=== PATIENT | female | born 1990 | race Caucasian/White ===

== ENCOUNTER 2018-06-08 23:49 | Emergency (ER) | payer OTHER ==
[~2018-06-08] VITALS: Ht 167.6 cm; Wt 97.7 kg
[2018-06-09 00:28] LABS: BASOPHIL (%) 0.9 % (0-1); BASOPHIL COUNT 0.1 K/uL (0-0.1); EOSINOPHIL (%) 3.7 % (0-5); EOSINOPHIL COUNT 0.3 K/uL (0-0.3); HEMATOCRIT 37.9 % (36.0-46.0); HEMOGLOBIN 13.7 G/DL (11.9-15.5); IMMATURE GRANULOCYTE (%) 0.4 % (0.0-0.7); LYMPHOCYTE (%) 27.5 % (15-42); LYMPHOCYTE COUNT 2.5 K/uL (1.0-2.8); MCH 30.7 PG (29.0-34.0); MCHC 36.1 G/DL (30.0-36.0); MONOCYTE (%) 7.7 % (3-12); MONOCYTE COUNT 0.7 K/uL (0-0.8); NEUTROPHIL (%) 59.8 % (45-76); NEUTROPHIL COUNT 5.5 K/uL (1.8-6.4); PLATELET COUNT 238 K/uL (156-360); RBC DIS.WIDTH-CV 11.2 % (11.8-14.6); RBC DIS.WIDTH-SD 34.7 % (39-53); RED BLOOD COUNT 4.46 M/uL (3.80-5.20); WHITE BLOOD COUNT 9.1 K/uL (4.1-10.2)
[2018-06-09 00:40] LABS: ALBUMIN 4.5 g/dL (3.2-4.8)
[2018-06-09 00:41] LABS: CHLORIDE 106 mEq/L (99-109); POTASSIUM 4.1 mEq/L (3.7-5.4); SODIUM 141 mEq/L (136-147)
[2018-06-09 00:43] LABS: GLUCOSE 100 mg/dL (70-99); TOTAL PROTEIN 7.9 g/dL (6.4-8.3)
[2018-06-09 00:45] LABS: TOTAL BILIRUBIN 0.4 mg/dL (0.0-1.0)
[2018-06-09 00:46] LABS: ALKALINE PHOSPHATASE 84 IU/L (3-129)
[2018-06-09 00:47] LABS: CREATININE 0.8 mg/dL (0.6-1.3); GFR ESTIMATE (CALCULATED) > 59 mL/min/
[2018-06-09 00:48] LABS: AST (GOT) 47 IU/L (2-34); UREA NITROGEN (BUN) 11 mg/dL (9-23)
[2018-06-09 00:50] LABS: ALT (GPT) 91 IU/L (3-49)
[2018-06-09 00:57] LABS: QUANTITATIVE HCG < 4.0 MIU/ML
[2018-06-09 02:50] LABS: APPEARANCE CLEAR ((CLEAR)); BILIRUBIN NEGATIVE; BLOOD SMALL; COLOR YELLOW ((YELLOW)); GLUCOSE (STRIP) NEGATIVE; KETONES NEGATIVE; LEUKOCYTES NEGATIVE; NITRITE NEGATIVE; PROTEIN (STRIP) NEGATIVE; SPECIFIC GRAVITY 1.016 (1.000-1.030); UROBILINOGEN 0.2 MG/DL (0.2-1.0)
[2018-06-09 02:57] LABS: BACTERIA RARE /HPF; EPITHELIAL CELLS RARE /HPF; MUCUS TRACE /LPF; UCUL ADDED? NO; WHITE BLOOD CELLS 0-5 /HPF (0-5)
[2018-06-09 04:07] VITALS: BP 135/98
[2018-06-09] MEDS ORDERED: ZOFRAN ODT4 MG PO (04:35)
[2018-06-09] MEDS ORDERED: MOTRIN800 MG PO (04:35)
[2018-06-09] MEDS ORDERED: LORTAB 5-325 M1 EACH PO (04:35)
== END 2018-06-09 05:04 | disposition home or self-care (01) ==
LOC: EME 23:49
PROVIDERS: Emergency Medicine
DX: N13.2 Hydronephrosis with renal and ureteral calculous obstruction (principal)
CPT/HCPCS: 74177; 80053; 81003; 84702; 85025; 99281; 99284; J2405; J3010; J7040